=== PATIENT | male | born 1980 | race Caucasian/White ===

== ENCOUNTER 2016-09-15 20:22 | Emergency (ER) | payer MEDICAID ==
[~2016-09-15] VITALS: Ht 180.3 cm; Wt 73.2 kg
[2016-09-15 21:21] VITALS: BP 144/89
== END 2016-09-15 22:06 | disposition left against medical advice (07) ==
LOC: ED 22:00
DX: R07.9 Chest pain, unspecified (principal)
CPT/HCPCS: 71120; 99284

== ENCOUNTER 2016-09-16 20:12 | Emergency (ER) | payer MEDICAID ==
[~2016-09-16] VITALS: Ht 180.3 cm; Wt 74.3 kg
[2016-09-16 20:19] VITALS: BP 133/75
== END 2016-09-16 21:38 | disposition left against medical advice (07) ==
LOC: ED 21:32
DX: R10.10 Upper abdominal pain, unspecified (principal)
CPT/HCPCS: 93005; 99283